=== PATIENT | female | born 1950 | race Caucasian/White ===

== ENCOUNTER → 2016-11-15 | Outpatient (CLI) | payer OTHER ==
[~2016-11-15] MED LIST: ACET-1256 PO; ASPCH81X PO; CHOL200010 PO; CLR10 PO; COEN100C7 PO; COQ10 PO; EFF75 PO; EPP3/2 IM; FERR1TAB23 PO; HYDR25TA4 PO; METO1TAB69 PO; MULT-506 PO; NAPR1TAB9 PO; OXYC-57 PO; PANT40TA PO; POTA10CA28 PO; SIMV40TA2 PO; SULF800T23 PO; TPRSR/100 PO; WARF2TAB PO
== END | disposition home or self-care (01) ==
LOC: C.RDSM 14:00
PROVIDERS: ATTEND Physical Medicine & Rehabilitation Sports Medicine
DX: M25.561 Pain in right knee (principal); M25.562 Pain in left knee

== ENCOUNTER → 2016-11-19 | Outpatient (CLI) | payer OTHER ==
[2016-11-19 17:34] LABS: MEAN CELL VOLUME 87.6 fL (80-100); MEAN CORPUSCULAR HEMOGLOBIN 28.8 pg (25-34); MEAN CORPUSCULAR HGB CONC 32.8 g/dl (32-36); MEAN PLATELET VOLUME 10.5 fL (7.4-10.4); PLATELET COUNT 228 K/uL (130-400); RED BLOOD COUNT 5.25 M/uL (4.2-5.4); WHITE BLOOD COUNT 4.71 K/uL (4.8-10.8)
== END | disposition home or self-care (01) ==
LOC: C.LABBFT 12:50
PROVIDERS: ATTEND Nurse Practitioner
DX: D64.9 Anemia, unspecified (principal)

== ENCOUNTER → 2017-01-10 | Outpatient (CLI) | payer OTHER ==
[~2017-01-10] MED LIST changes: +METO100T44 PO; -METO1TAB69 PO
== END | disposition home or self-care (01) ==
LOC: C.LABSPEC 12:58
PROVIDERS: ATTEND Nurse Practitioner
DX: D64.9 Anemia, unspecified (principal)

== ENCOUNTER 2017-02-02 05:58 | Inpatient (IN) | payer OTHER ==
[2017-01-13 11:49] VITALS: BMI 27.0
--- NOTE | 2017-01-13 12:38 | PAT Medication Instructions ---
Service Date Jan 13, 2017. Current Home Medication List Acetaminophen (Tylenol), 1,000 MG PO PRN Aspirin (Aspirin Chewable), 81 MG PO QAM Cholecalciferol (Vitamin D), 1 CAP PO HS Epinephrine (Epipen), 0.3 MG IM UD Ferrous Sulfate (Iron), 325 MG PO 2XWEEK Hydrochlorothiazide (Hctz), 25 MG PO QAM Loratadine (Claritin), 10 MG PO PRN Multivitamin (Multivitamin), 1 TAB PO QAM Naproxen (Aleve), 220 MG PO QAM Potassium Chloride (Micro-K Ext Rel), 10 MEQ PO BID Simvastatin (Zocor), 40 MG PO HS Venlafaxine Hcl (Effexor), 75 MG PO QAM Venlafaxine Hcl (Effexor), 75 MG PO DAILY [Coq10], 1 TAB PO QAM Medication Instructions For Your Scheduled Surgery Epinephrine (Epipen), 0.3 MG IM UD (if needed) - Hold the following medications 10 days prior to surgery: Coq10 1 TAB PO QAM - Hold the following medications the morning of surgery: Potassium Chloride (Micro-K Ext Rel), 10 MEQ PO BID Naproxen (Aleve), 220 MG PO QAM (not told to stop by surgeon) Hydrochlorothiazide (Hctz), 25 MG PO QAM Loratadine (Claritin), 10 MG PO PRN Multivitamin (Multivitamin), 1 TAB PO QAM Ferrous Sulfate (Iron), 325 MG PO 2XWEEK - Take the following medications the morning of surgery with a sip of water: Venlafaxine Hcl (Effexor), 75 MG PO QAM Acetaminophen (Tylenol), 1,000 MG PO PRN (if needed) Aspirin (Aspirin Chewable), 81 MG PO QAM Metoprolol 100mg daily - Take the following medications as scheduled the night before surgery: Simvastatin (Zocor), 40 MG PO HS Potassium Chloride (Micro-K Ext Rel), 10 MEQ PO BID Loratadine (Claritin), 10 MG PO PRN Cholecalciferol (Vitamin D), 1 CAP PO HS If you have any questions please call us at [phone] or [phone] ( Francesca) or [phone]
[2017-01-13 13:13] LABS: BASO % 0.6 %; BASO ABS # 0.03 K/uL (0-0.2); COMPLETE YES; EOS % 1.9 %; HEMATOCRIT 43.3 % (37-47); LYMPH % 42.4 %; LYMPH ABS # 2.02 K/uL (1.2-3.4); MEAN CELL VOLUME 84.9 fL (80-100); MEAN CORPUSCULAR HEMOGLOBIN 28.4 pg (25-34); MEAN CORPUSCULAR HGB CONC 33.5 g/dl (32-36); MEAN PLATELET VOLUME 9.6 fL (7.4-10.4); MONO % 10.7 %; NEUT % 44.4 %; PLATELET COUNT 218 K/uL (130-400); WHITE BLOOD COUNT 4.76 K/uL (4.8-10.8)
[2017-01-13 13:16] LABS: URINE APPEARANCE CLEAR (CLEAR); URINE BILIRUBIN NEG (NEG); URINE COLOR YELLOW; URINE NITRITE NEG (NEG); URINE SPECIFIC GRAVITY 1.011 (1.000-1.030); UROBILINOGEN NEG (NEG); ZZUR CULT IF INDIC CLEAN CATCH NO
--- NOTE | 2017-01-13 13:20 | DIAGNOSTIC IMAGING REPORT ---
TWO VIEW CHEST CLINICAL HISTORY: Preoperative examination. FINDINGS: PA and lateral chest radiographs are compared to study dated 05/21/2016. The patient is status post midline sternotomy and aortic valve replacement. The heart is mildly enlarged. The pulmonary vasculature is noncongested. The lungs and pleural spaces are clear. There is no pneumothorax. The skeletal structures are osteopenic. There is moderate thoracic levocurvature. Thoracolumbar spinal rods are in place. Cholecystectomy clips are seen in the right upper quadrant. IMPRESSION: No active disease in the chest. Electronically signed by: David Garcia M.D. 01/13/2017 1:19 PM Dictated Date/Time: 01/13/2017 1:18 PM
[2017-01-13 13:28] LABS: PROTHROMBIN TIME (PATIENT) 10.8 SECONDS (9.0-12.0)
[2017-01-13 13:29] LABS: MANUAL MICROSCOPIC REQUIRED? NO; REVIEW REQ? NO
[2017-01-13 14:04] LABS: BUN/CREATININE RATIO 21.4 (10-20); CALCIUM 9.6 mg/dl (8.5-10.1); CREATININE 0.78 mg/dl (0.60-1.20); POTASSIUM 4.5 mmol/L (3.5-5.1)
--- NOTE | 2017-01-18 11:58 | HISTORY & PHYSICAL EXAMINATION ---
DATE OF ADMISSION: 02/02/2017 CHIEF COMPLAINT: Left knee pain. HISTORY OF PRESENT ILLNESS: This 66-year-old white female presents to the office with complaints of left knee pain that had been ongoing for several years. It has become worse over the last 6-9 months. Pain is worse with weightbearing and is affecting her ADLs. She states she had a trip to [place] in [place] in September and her knee pain made her miserable. It was very difficult for her to get through the amusement [place]. She notes occasional effusions. She has used a cane in the past. She is currently using nothing today. She does use a wheelchair and scooter while [place] the amusement [place]. No numbness or tingling. She has tried activity modification, oral pain medication, and assistive devices without lasting improvement. Preoperative x-rays have been obtained. She elects to proceed with total knee arthroplasty in hopes of alleviating her pain. PAST MEDICAL HISTORY: Significant for heart murmur, previous aortic valve replacement, hypertension, seasonal allergies, history of anemia, history of GI bleed, osteoarthritis, chronic back pain, and obesity. PREVIOUS SURGERIES: Tonsillectomy with adenoidectomy, cholecystectomy, thoracic back fusion, aortic valve replacement in July 2014 at [facility], and multiple breast biopsies. ALLERGIES: KNOWN ALLERGY TO CIPRO WHICH CAUSES NAUSEA, SURGICAL GLUE CAUSING SKIN REACTION, BEE STINGS, WELL CRAB MEAT. SOCIAL HISTORY: The patient is . Retired. No tobacco use, no ETOH use. FAMILY HISTORY: Noncontributory. CURRENT MEDICATIONS: Tylenol 325 mg 2 tablets p.o. q. 4 hours p.r.n., aspirin 81 mg daily, vitamin D daily, iron daily, HCTZ 25 mg p.o. daily, metoprolol 100 mg p.o. daily, Aleve 2 tablets p.r.n., potassium chloride 10 mEq p.o. b.i.d., simvastatin 20 mg p.o. at bedtime, CoQ10 daily, Effexor XR 150 mg p.o. daily. REVIEW OF SYSTEMS: Significant for above-stated conditions, otherwise unremarkable. PHYSICAL EXAMINATION: GENERAL: Well-developed, well-nourished middle aged white female in no acute distress. Sitting on a bed. Alert and oriented. SKIN: Warm and dry with good turgor. No rashes or lesions. No ecchymosis or erythema. HEENT: Normocephalic, atraumatic. Eyes PERRLA, EOMI. Nares patent bilaterally without turbinate enlargement. Oropharynx without erythema or exudate. No lesions noted. Uvula midline. Oral mucosa moist. Fair dentition. Dental caps fillings are noted. HEART: 3/6 systolic ejection murmur noted. No gallops or rubs. Peripheral pulses are 2+. LUNGS: Clear to auscultation bilaterally. No crackles, rhonchi or wheezing. Good air movement. ABDOMEN: Bowel sounds present x4, soft, nontender. No organomegaly. No masses. MUSCULOSKELETAL: Left knee has no intraarticular effusion today. She lacks approximately 5 degrees of terminal extension. Flexion to 100 degrees. Strength is 5/5 with fairly good quad tone. Significant discomfort with palpation over the medial and lateral joint lines. There is also peripatellar discomfort. Crepitus is palpable with motion. Stable collateral ligaments. Ambulatory with a slightly antalgic gait. NEUROLOGIC: Cranial nerves II through XII are intact. Gross sensation is intact across both lower extremities by soft touch. DATA: Radiographic images previously obtained show end-stage DJD of her left knee. Periarticular osteophytes, subchondral sclerosis, and joint space narrowing are present. IMPRESSION: Left knee end-stage degenerative joint disease. PLAN: Informed written consent was obtained to proceed with left total knee arthroplasty. Postoperative prescriptions for Percocet and Coumadin will be provided at discharge from the hospital. Anticipate discharge to home with 2 weeks of home health services and then outpatient PT. She already has a walker and cane. She has previously obtained medical clearance from her filter press tender head, Dr. Sewell. She will also obtain medical clearance from Dr. Chua. Preoperative lab work, EKG, and chest x-ray have been ordered. MTDD
[~2017-02-02] VITALS: Ht 175.3 cm; Wt 82.0 kg
[2017-02-02] VITALS (9 sets, daily range): BP systolic 96–130; BP diastolic 59–85; PULSE 66–77; TEMP 36.5–36.8; O2SAT 95–100; Ht 175.3 cm; Wt 82.0 kg
[~2017-02-02 05:58] MED LIST changes: -COEN100C7 PO; -METO100T44 PO; -OXYC-57 PO; -PANT40TA PO; -SULF800T23 PO; -WARF2TAB PO
[2017-02-02] MEDS ORDERED: LACTATED RINGER'S 500 ML IV SCH (06:00)
[2017-02-02] MEDS ORDERED: LACTATED RINGER'S 1000ML IV SCH ×2 (06:00)
[2017-02-02] MEDS ORDERED: ROPIVACAINE 5MG/ML 30 ML 150 MG, BUPIVACAINE/EPINEPHR 0.5% MPF 30 ML, KETOROLAC TROMETH... INFIL SCH ×7 (06:00)
[2017-02-02] MEDS ORDERED: CEFAZOLIN 2000 MG/60 ML D5W 60 ML IV SCH (06:00)
[2017-02-02] MEDS ORDERED: TRANEXAMIC ACID INJ 1,000 MG in SODIUM CHLORIDE 0.9% 100ML 100 ML IV SCH (06:00)
[2017-02-02] MEDS ORDERED: TRANEXAMIC ACID INJ 1,000 MG in SODIUM CHLORIDE 0.9% 100ML 100 ML TOP SCH (06:30)
--- NOTE | 2017-02-02 06:35 | History & Physical Bridge Note ---
H&P Re-Evaluation Bridge Note: I have examined the patient, reviewed the History & Physical and in the interval since the performance of the History & Physical I have noted the following changes of clinical significance:no new issues. No changes noted
[2017-02-02] MEDS ORDERED: MIDAZOLAM HCL 1 MG/ML 2ML VIAL ONE (07:24)
[2017-02-02] MEDS ORDERED: LIDOCAINE HCL 2% 2 ML VIAL (20MG/ML) ONE (07:24)
[2017-02-02] MEDS ORDERED: FENTANYL CITRATE INJ 50 MCG/1 ML 2 ML VIAL ONE (07:24)
[2017-02-02] MEDS ORDERED: PROPOFOL IV EMULSION 10 MG/ML 20 ML VIAL IV ONE ×2 (07:24→09:30)
[2017-02-02] MEDS ORDERED: BUPIVACAINE 0.5 % 5 MG/1 ML PF 10ML VIAL ONE (08:03)
[2017-02-02] MEDS ORDERED: BUPIVACAINE 0.25% 30 ML VIAL ONE (08:03)
[2017-02-02] MEDS ORDERED: LABETALOL HCL IV 5 MG/ML 20ML IV PRN (08:30)
[2017-02-02] MEDS ORDERED: NALOXONE HCL 0.4 MG/1 ML VIAL/CARP IV PRN (08:30)
[2017-02-02] MEDS ORDERED: FLUMAZENIL 0.1 MG/1 ML 10 ML VIAL IV PRN (08:30)
[2017-02-02] MEDS ORDERED: ONDANSETRON INJ 2 MG/ML 2 ML VIAL IV PRN (08:30)
[2017-02-02] MEDS ORDERED: HYDROmorphone INJ 1 MG/ML SYR IV PRN (08:30)
[2017-02-02] MEDS ORDERED: EpHEDrine SULFATE INJ 50 MG/ML AMP IV PRN (08:30)
[2017-02-02] MEDS ORDERED: ATROPINE SULFATE 0.1 MG/ML 5ML SYR IV PRN (08:30)
[2017-02-02] MEDS ORDERED: POVIDONE-IODINE OP SOLN 30 ML BTL ONE (08:41)
[2017-02-02] MEDS ORDERED: ORTHO JOINT ANESTHETIC ONE (08:41)
[2017-02-02] MEDS ORDERED: ONDANSETRON INJ 2 MG/ML 2 ML VIAL ONE (09:13)
[2017-02-02] MEDS ORDERED: DEXAMETHASONE SOD INJ 4 MG/ML VIAL ONE (09:13)
[2017-02-02] MEDS ORDERED: HYDROmorphone INJ 2 MG/ML SYR/VIAL ONE (09:22)
[2017-02-02] MEDS ORDERED: EpHEDrine SULFATE 50MG/5ML SYR ONE (09:24)
--- NOTE | 2017-02-02 10:25 | [facility] Post Operative Brief Note ---
Immediate Operative Summary Operative Date Feb 02, 2017. Pre-Operative Diagnosis Left Knee End-Stage Degenerative Joint Disease Post-Operative Diagnosis Left Knee End-Stage Degenerative Joint Disease Procedure(s) Performed Left Total Knee Arthroplasty, Cemented Surgeon Dr. Zhao Manager Garage Surgeon(s) Dr. Armen Cohen (Fellow)/ Fadi Cueva PA-C Estimated Blood Loss 50 ml Findings severe djd Fluids (cc crystalloids) 1600cc Specimens A: Left Knee Bone and Tissue Drains none Anesthesia LMA/OB Complication(s) None Disposition Recovery Room / PACU
[2017-02-02] MEDS ORDERED: ACETAMINOPHEN IV 100 ML IV PRN (10:45)
[2017-02-02] MEDS ORDERED: ALUMINUM/MAGNESIUM/SIMETH (MAALOX MAX) 30 ML UDC PO PRN (10:45)
[2017-02-02] MEDS ORDERED: MAGNESIUM HYDROXIDE SUSP 30 ML UDC PO PRN (10:45)
[2017-02-02] MEDS ORDERED: MoRPHine SULFATE 2 MG/ML CARP IV PRN (10:45)
[2017-02-02] MEDS ORDERED: ACETAMINOPHEN 325 MG TAB PO PRN (10:45)
[2017-02-02] MEDS ORDERED: DiphenhydrAMINE HCL 50 MG/ML VIAL IV PRN (10:45)
[2017-02-02] MEDS ORDERED: BISACODYL 10 MG SUPP PR PRN (10:45)
[2017-02-02] MEDS ORDERED: METOCLOPRAMIDE HCL INJ 5 MG/ML 2 ML VIAL IV PRN (10:45)
--- NOTE | 2017-02-02 11:06 | OPERATIVE REPORT ---
DATE OF OPERATION: 02/02/2017 SURGEON: Dr. Zhao. FILM EXAMINER: Armen Cohen MD SECOND FILM EXAMINER: ELICIA Sims PREOPERATIVE DIAGNOSIS: Osteoarthritis left knee with varus deformity. POSTOPERATIVE DIAGNOSIS: Same. OPERATION PERFORMED: Cemented left total knee replacement. SUMMARY OF IMPLANTS: Size 3 left posterior cruciate substituting femur, size 3 rotating tibial platform tray, size 3 12.5 mm spacer, oval domed 3 pegged patella size 41, 2 bags of Palacos G cement. ESTIMATED BLOOD LOSS: 50 mL. CRYSTALLOID: 1600 mL. DVT prophylaxis per protocol. PERIOPERATIVE SITUATION: Medically cleared female with intractable knee pain is on chronic anticoagulation for valve replacement. She will return on that. She is now admitted for elective left total knee replacement, cemented. DESCRIPTION OF PROCEDURE: The patient appropriately identified, site verified, consent verified, 2 grams of Ancef confirmed as being given. The left lower extremity was prepped and draped in usual routine fashion. A midline exposure was utilized after tourniquet was inflated to 300 mmHg for a total of 52 minutes. Parapatellar arthrotomy performed. Appropriate synovectomy and releases performed, patella everted. Distal femur entered. Distal femur resected 12 mm. Proximal tibia resected 4 mm. The extension gap was excellent. Femur was sized between a 4 and a 3, was measured 4 cut 3. There was no significant notching. The space at the flexion gap spacing was excellent. Appropriate box cut was then made and the size 3 trial fit well. The tibia was then broached and reamed to a 3 and then 12.5 mm spacer provided full extension and excellent mid range flexion stability. The patella was sized to 41 and was resected leaving 14-15 mm. The trial peg holes were then made and the trial tracked well. The ortho mix was then injected. The wound was then irrigated. TXA was then placed and she did not get an IV based on her valve replacement and that was irrigated. Permanent implants were then cemented into position. After 12 minutes, the tourniquet deflated. After 14 minutes the knee flexed. Minor cement removal occurred. Chodrocalcinosis on the capsule was not excised if the integrity of the capsule would be in question. The trial spacer removed. The wound was irrigated with a Pulsavac and Betadine and then the permanent spacer seated. The knee reduced and then closed with #1 Ethibond, #1 Vicryl, 2-0 Vicryl and stainless steel clips. Appropriate soft tissue dressing applied. The patient was then transferred to recovery room in satisfactory condition having tolerated the procedure well. I attest to the content of the Intraoperative Record and any orders documented therein. Any exceptions are noted below. MTDD
--- NOTE | 2017-02-02 11:07 | PROGRESS NOTE ---
DATE: 02/02/2017 Postop check in the recovery room. At this point in time, still sleepy. Has no issues with nausea, vomiting, chest pain, shortness of breath, fever or chills. Vital signs are stable. She is afebrile. Neurovascular check is grossly normal. X-rays are pending. ASSESSMENT: Status post left total knee replacement. Continue with post-care pathway. Obtain x-ray postop. Mobilize EMANI based on heart disease. Coumadin for 4 weeks, aspirin continued.
--- NOTE | 2017-02-02 11:23 | Anesthesiology Progress Note ---
Anesthesia Post Op Note Date & Time Feb 02, 2017 at 11:22 Vital Signs Pain Intensity: 0 Vital Signs Past 12 Hours Date Time Temp Pulse Resp B/P Pulse Ox O2 Delivery O2 Flow Rate FiO2 02/02/17 11:15 36.3 82 18 123/65 100 Nasal Cannula 2 02/02/17 10:59 85 17 100 02/02/17 10:59 85 17 02/02/17 10:56 122/82 02/02/17 10:54 82 11 100 02/02/17 10:54 81 11 02/02/17 10:51 116/61 02/02/17 10:49 82 13 100 02/02/17 10:49 81 13 02/02/17 10:46 121/60 02/02/17 10:44 83 12 02/02/17 10:44 82 12 100 02/02/17 10:40 123/61 02/02/17 10:39 83 16 02/02/17 10:39 36.3 82 16 124/64 100 Mask 10 02/02/17 10:39 84 16 124/64 100 02/02/17 06:49 36.5 72 20 130/85 99 Room Air Notes Mental Status: alert / awake / arousable, participated in evaluation Pt Amnestic to Procedure: Yes Nausea / Vomiting: adequately controlled Pain: adequately controlled Airway Patency, RR, SpO2: stable & adequate BP & HR: stable & adequate Hydration State: stable & adequate Anesthetic Complications: no major complications apparent
--- NOTE | 2017-02-02 11:46 | OPERATIVE REPORT ---
DATE OF OPERATION: 02/02/2017 PREOPERATIVE DIAGNOSIS: Left knee end-stage degenerative joint disease. POSTOPERATIVE DIAGNOSIS: Left knee same. PROCEDURE: Left knee total knee arthroplasty using DePuy implants. SURGEON: Dr. Zhao. CAUSTIC PLANT WORKER: Dr. Phoenix. SECOND DOCUMENT CONTROL SUPERVISOR: Fadi Cueva PA-C. HISTORY OF PRESENT ILLNESS: This 66-year-old white female presented to the office with complaints of left knee pain that had been ongoing for several years. It had become worse over time. She was using assistive device. She had tried conservative care measures without success. The patient elected to proceed with surgical intervention after being educated about potential risks and outcomes. OPERATION: The patient was taken to the operating room where she was administered general anesthetic. She was prepped and draped in the usual sterile fashion. Please see Dr. Zhao's operative report for specifics of the procedure. I was present for the entire case from initial patient positioning through final wound closure. Assistance was provided in patient positioning, tissue retraction, hemostasis, trial implant placement, final implant placement, and final wound closure. The patient was taken to the recovery room in satisfactory condition. I attest to the content of the Intraoperative Record and any orders documented therein. Any exceptio ns are noted below.
[2017-02-02] MEDS ORDERED: WARF2TAB PO (12:05)
[2017-02-02] MEDS ORDERED: OXYC-57 PO (12:05)
--- NOTE | 2017-02-02 12:14 | DIAGNOSTIC IMAGING REPORT ---
ADDENDUM ADDENDUM: The case was discussed with Dr. Zhao. The calcific density within the lateral joint space corresponds to a meniscal fragment with chondrocalcinosis as opposed to a calcified joint body. Electronically signed by: David Garcia M.D. 02/02/2017 1:09 PM Dictated Date/Time: 02/02/2017 1:08 PM ORIGINAL REPORT TWO VIEWS LEFT KNEE CLINICAL HISTORY: Postoperative examination. FINDINGS: AP and crosstable lateral portable views of the left knee are obtained. Correlation is made with left knee radiographs dated 11/15/2016. A left knee arthroplasty is in near anatomic alignment. There has been undersurface remodeling of the patella. No acute fracture is seen. There are expected postoperative changes around the knee including skin clips, soft tissue edema, and subcutaneous gas. A calcified fabella is incidentally noted. A joint body is questioned in the lateral joint space. A soft tissue calcification posterior to the knee is unchanged. IMPRESSION: 1. Expected postoperative changes status post left knee arthroplasty. No acute fracture is seen. 2. Question a calcified joint body within the lateral joint space. Electronically signed by: David Garcia M.D. 02/02/2017 12:12 PM Dictated Date/Time: 02/02/2017 12:11 PM
[2017-02-02] MEDS ORDERED: MoRPHine SULFATE 4 MG/ML 1 ML CARP\\VIAL IV PRN (13:00)
[2017-02-02] MEDS ORDERED: D5W AND 1/2NSS + 20MEQ KCL 1,000 ML IV SCH (13:00)
--- NOTE | 2017-02-02 13:15 | PROGRESS NOTE ---
DATE: 02/02/2017 X-RAY: AP and lateral of the knee postop reveals excellent alignment of the implant. The area in question of a calcified body is secondary to chondrocalcinosis on the posterior capsule and posterior remnant of the meniscus. It is not a free piece. It is not in the joint. It was elected not to excise all of this based on the fact that it would decrease the integrity of the capsule and potentially increase instability. This correlates well with preop x-rays at the posterior horn area of the capsule and the meniscus junction. Again, it is not a loose body.
[2017-02-02] MEDS ORDERED: WARFARIN SOD 5 MG TAB PO ONE (16:00)
[2017-02-02] MEDS: CEFAZOLIN IV 2,000 MG in DEXTROSE 5% 50ML 50 ML IV SCH (16:15)
[2017-02-02] MEDS: OXYCODONE HCL IR 5 MG TAB (IMMEDIATE RELEASE) PO PRN ×2 (17:31→21:05)
[2017-02-02] MEDS: ONDANSETRON INJ 2 MG/ML 2 ML VIAL IV PRN (17:31)
[2017-02-02] MEDS: FERROUS GLUCONATE 324 MG TAB PO SCH (18:14)
[2017-02-02] MEDS: KETOROLAC TROMETHAMINE 30 MG/ML VIAL IV. SCH (18:15)
[2017-02-02] MEDS ORDERED: SIMVASTATIN 40 MG TAB PO SCH (21:00)
[2017-02-02] MEDS: DOCUSATE SODIUM 100 MG CAP PO SCH (21:04)
[2017-02-02] MEDS: POTASSIUM CHLORIDE 10 MEQ TABCR PO SCH (21:05)
[2017-02-03] MEDS: CEFAZOLIN IV 2,000 MG in DEXTROSE 5% 50ML 50 ML IV SCH (00:04)
[2017-02-03] MEDS: KETOROLAC TROMETHAMINE 30 MG/ML VIAL IV. SCH ×3 (00:06→12:04)
[2017-02-03 03:25] VITALS: BP 94/58; PULSE 71; TEMP 36.6; O2SAT 100
[2017-02-03] MEDS: OXYCODONE HCL IR 5 MG TAB (IMMEDIATE RELEASE) PO PRN ×3 (05:50→14:11)
[2017-02-03 06:37] LABS: HEMATOCRIT 34.2 % (37-47); MEAN CELL VOLUME 87.7 fL (80-100); MEAN PLATELET VOLUME 9.2 fL (7.4-10.4); PLATELET COUNT 194 K/uL (130-400); WHITE BLOOD COUNT 11.71 K/uL (4.8-10.8)
--- NOTE | 2017-02-03 07:04 | DISCHARGE SUMMARY ---
POSTENTIAL DISCHARGE: 02/03/2017 versus 02/04/2017 CHIEF COMPLAINT: Left knee pain. HISTORY OF PRESENT ILLNESS: A 66-year-old female admitted for elective left total knee replacement. Her hospital course has been relatively uneventful. She had severe disease. PAST MEDICAL HISTORY: Remarkable for heart murmur, previous aortic valve replacement, hypertension, seasonal allergies, history of anemia, history of GI bleed, osteoarthritis, chronic back pain, and obesity. PREVIOUS SURGERIES: Include tonsillectomy with adenoidectomy, cholecystectomy, thoracic back fusion, aortic valve replacement, multiple breast biopsies. ALLERGIES: TO CIPRO WHICH CAUSES NAUSEA, SURGICAL GLUE CASUES SKIN REACTION, BEE STINGS, AND CRAB MEAT. SOCIAL HISTORY: Reveals she is , retired. Does not smoke or drink. FAMILY HISTORY: Noncontributory. PREADMISSION MEDICATIONS: Include Tylenol, aspirin, vitamin D, iron, hydrochlorothiazide, metoprolol, Aleve, potassium chloride, simvastatin, CoQ10, Effexor. She will continue all of those medications and add Coumadin to keep INR 1.8-2.2. Discharge on 4 mg of Coumadin if INR is less than or equal to 1.4 today. REVIEW OF SYSTEMS: Noncontributory. She has no headache, nausea, vomiting, shortness of breath, fever or chills. ASSESSMENT: Overall doing well status post left total knee replacement. A little bit anxious about leaving today, but if she does well, can leave today; if not, leave tomorrow. If INR is less than or equal to 1.4, discharge on 4 mg Coumadin. Check INR on Tuesday.
[2017-02-03 07:14] LABS: BUN/CREATININE RATIO 14.8 (10-20); CALCIUM 8.4 mg/dl (8.5-10.1); CREATININE 0.81 mg/dl (0.60-1.20); POTASSIUM 3.6 mmol/L (3.5-5.1)
[2017-02-03] MEDS: ONDANSETRON INJ 2 MG/ML 2 ML VIAL IV PRN (07:22)
--- NOTE | 2017-02-03 07:22 | PROGRESS NOTE ---
DATE: 02/03/2017 Postoperative day #1 status post left total knee replacement. At this point in time, the patient is reading paper in bed, sitting up comfortably. She denies any chest pain, shortness of breath, fever, chills, nausea, vomiting or headache. She gets occasionally lightheaded usually associated with pain medication. Vital signs are stable. She is afebrile. Neurovascular check femoral sciatic nerve is excellent. Wound dressing is clean, dry and intact. Calves are nontender. Abdomen is soft and nontender. Coagulation and chemistry pending this morning. Hematocrit stable at 34.2. ASSESSMENT: Status post left total knee replacement, doing well. PT/OT today. Coumadin per nomogram today. Discharge on 4 mg Coumadin if INR less than or equal to 1.4. Potential home later today after PT/OT if she so desires; if not go home tomorrow. patient services clerk planning in place. Prefers home health with services. Start outpatient PT after 2 weeks. CECILIA
[2017-02-03] MEDS ORDERED: DEXAMETHASONE INJ 10 MG in SYRINGE 0 ML IV ONE (07:30)
[2017-02-03 07:45] VITALS: BP 101/65; PULSE 68
--- NOTE | 2017-02-03 07:45 | Discharge Instructions ---
Discharge Instructions Date of Service Feb 02, 2017. Admission Reason for Admission: Left Knee Degenerative Joint Disease Discharge Discharge Diagnosis / Problem: Left knee s/p total knee replacement Discharge Goals Goal(s): Decrease discomfort, Improve function, Increase independence Activity Recommendations Activity Limitations: as noted below Lifting Limitations: gradually increase as tolerated Exercise/Sports Limitations: until after follow-up appointment Shower/Bathe: keep incision dry Driving or Machine Use: No driving until cleared by Dr. Zhao Weightbearing Status: Left weightbearing (as tolerated) . Instructions / Follow-Up Instructions / Follow-Up New Medicine: * You will likely be taking one or more of these medications: 1. Percocet - Take, as directed, when you need it, every four to six hours to control your pain 2. Coumadin - Thins your blood to lessen the chance of forming a blood clot. The dose of this is different for each person and is based on your blood tests that are done twice a week. * The most common side effects of pain medicine and iron are nausea and constipation. If nausea or constipation is too much of a problem or if you have any questions about your new medicines or doses, call [facility] at . We will try to help you manage these issues. VERY IMPORTANT TO READ AND REVIEW" Blood Clots and Blood Thinning Medicine: * You are given Coumadin during the immediate post-operative period to lessen the risk of blood clots forming in your legs and/or lungs. Coumadin is usually given for six weeks after surgery. * The prescription is for 2 mg tablets. At discharge, you should understand your dose and take it all at the same time every day, preferably after dinner. * You need to get your blood checked 1 - 2 times per week for six weeks or as directed. * If your dose needs to change, we will call you. Do not take your medication on the day of the blood test until we call you. Pain: * The immediate post-operative period after knee replacement surgery is often quite painful. * You are given a prescription for pain medicine. You should take it, as directed, when you need it, especially before physical therapy and before going to bed. Pain that interferes with sleep is very common and can last several months. * You will likely need pain medicine for the first four to six weeks. It will not stop all of the pain. The pain will lessen and as you feel better, you may change to milder pain medicine such as Tylenol. * The most common side effects of pain medicine are nausea and constipation, so don't take more than you need. Physical Therapy: * You will have physical therapy two or three times each week for four to six weeks after your surgery in order to regain your knee range of motion and to retrain your knee to work properly. * It is just as important to make sure you are getting your knee perfectly straight as it is to regain your knee bend. * Taking a pain pill an hour before therapy can help you have a more productive and comfortable therapy session if needed. Home Exercise: * You were shown a series of exercises (heel props, heel slides, etc.) in the hospital. Do these exercises three to four times each day including the exercises you were shown in physical therapy. Walking: * Get up and walk several times each day. For the first four weeks, try not to stand or walk for more than one hour at a time. If you do stand or walk for more than one hour, you will not hurt anything, but your knee and leg will likely swell. * As you feel comfortable, you may change from the walker or crutches to a cane and then to independent walking. SELF CARE INSTRUCTIONS AFTER TOTAL KNEE REPLACEMENT A. You may need to continue a physical therapy program after discharge from the hospital. There are several options available to you. Your doctor will assist you in selecting the best one for you. 1. An out-patient facility 2 to 3 times a week for therapy or home therapy. 2. Continue working on all exercises taught to you in the hospital. Your goals should be to increase bending of your knee to 90 degrees and beyond and to fully straighten your knee. B. You may progress at your own pace from walking with a walker or crutches to a cane; then to no assistive devices. C. Make walking a part of your daily routine. Be up as much as comfortable with rest periods throughout the day. Rest with leg elevation is very important. Use the ice wrap frequently for the first 3-4 weeks. D. There are no restrictions on activities. You may ride in a car, shop, participate in machine joint cutter and all social activities. E. Wear the long elastic stockings (KVNG hose) 20 hours a day for six weeks after surgery. They can be removed several times a day for laundering and for a shower. F. Do not place a pillow behind your knee when resting. A pillow at your ankle is okay. VERY IMPORTANT TO READ AND REVIEW A. Take Coumadin, Aspirin or Lovenox (blood thinning medications) as directed by your doctor. If on Coumadin, have a pro-time (blood test) drawn according to your doctor's instructions. This will tell the doctor how well the Coumadin is thinning your blood. 1. YOU WILL BE GIVEN AN ORDER AT DISCHARGE FOR PT/INR (BLOOD WORK). PLEASE HAVE THIS DONE INSTRUCTED. PLEASE CALL OUR OFFICE AFTER YOUR BLOODWORK IS COMPLETE SO WE CAN TRACK YOUR RESULTS. IF YOU ARE GOING TO OUTPATIENT PHYSICAL THERAPY, YOU WILL NEED TO GO TO OUTPATIENT TESTING TO HAVE IT DRAWN. B. There are a few signs you need to watch for after you are home. Call [facility] if you notice any of the followin. Increased severe knee pain. Some pain is expected especially when you exercise. 2. Increased swelling in your leg or knee; pain or swelling of the calf muscle in either lower leg. 3. Any fluid drainage from the incision. 4. Shortness of breath or chest pain. C. Please call [facility] at if you have any concerns or questions about your operation or recovery. The doctor or his nurse will return your call promptly. D. You must take antibiotics before dental work, bladder, bowel or other surgery. Call the office to obtain a prescription at least 2 days prior to your appointment. * CALL IF INCREASED PAIN, REDNESS, DRAINAGE OR FEVER GREATER THAT 101. * Sutures should be removed 12-14 days after surgery unless you are on chronic steriods, then it will be 14-18 days after surgery. Call your doctor if: * Temperature above 101 degrees F. * Pain not relieved by pain medicine ordered. * Increased drainage or redness from incision. * Notify your doctor with any questions or concerns. Current Hospital Diet Patient's current hospital diet: AHA Diet (Heart Healthy) Discharge Diet Recommended Diet: AHA Diet (Heart Healthy) Procedures Procedures Performed: Left Total Knee Arthroplasty, Cemented Pending Studies Studies pending at discharge: no Medical Emergencies . Who to Call and When: Medical Emergencies: If at any time you feel your situation is an emergency, please call 911 immediately. . Non-Emergent Contact Non-Emergency issues call your: Primary Care Provider, Surgeon Call Non-Emergent contact if: temperature is above 101, wound has increased drainage, wound has increased redness, wound has increased pain, you have any medication questions . "Provider Documentation" section prepared by Fadi Cueva PA-C. . VTE Core Measure Inpt VTE Proph given/why not?: Warfarin (Coumadin), T.EZach Stockings, SCD's [place] Drug Monitoring Program Search Results: no issues identified
--- NOTE | 2017-02-03 08:06 | Anesthesiology Progress Note ---
Anesthesia Post Op Note Date & Time Feb 03, 2017 at 08:05 Vital Signs Pain Intensity: 3.0 Vital Signs Past 12 Hours Date Time Temp Pulse Resp B/P Pulse Ox O2 Delivery O2 Flow Rate FiO2 02/03/17 07:20 Room Air 02/03/17 03:25 36.6 71 16 94/58 100 Nasal Cannula 2.0 02/03/17 00:00 Nasal Cannula 2.0 02/02/17 23:10 36.6 70 18 96/59 98 Nasal Cannula 2.0 Notes Mental Status: alert / awake / arousable, participated in evaluation Pt Amnestic to Procedure: Yes Nausea / Vomiting: adequately controlled Pain: adequately controlled Airway Patency, RR, SpO2: stable & adequate BP & HR: stable & adequate Hydration State: stable & adequate Neuraxial Anesthesia: sensory block resolved Anesthetic Complications: no major complications apparent
[2017-02-03 08:17] VITALS: BP 95/64; PULSE 68; TEMP 36.5; O2SAT 97
--- NOTE | 2017-02-03 08:21 | Orthopedic Progress Note ---
Orthopedic Progress Note Date of Service Feb 03, 2017. Subjective Post OP Day: 1 Reports: feeling well, nausea / vomiting (vomited 1/2 hour ago, feels better), Denies: SOB, calf pain, chest pain, light headedness Objective calves soft nontender, N/V intact, capillary refill less than 2 sec., dressing C /D/I, incision C/D/I, A&O x3, toes mobile, CMS intact dressings are dry. Minimal dry drainage from surgical wound. VSS. Date Time Temp Pulse Resp B/P Pulse Ox O2 Delivery O2 Flow Rate FiO2 02/03/17 07:20 Room Air 02/03/17 03:25 36.6 71 16 94/58 100 Nasal Cannula 2.0 02/03/17 00:00 Nasal Cannula 2.0 02/02/17 23:10 36.6 70 18 96/59 98 Nasal Cannula 2.0 02/02/17 19:17 36.8 67 18 98/61 95 Room Air 02/02/17 16:10 100 Nasal Cannula 2.0 02/02/17 15:20 36.8 66 18 98/65 99 Nasal Cannula 2.0 02/02/17 14:20 36.5 71 16 98/64 98 2.0 02/02/17 13:37 70 17 97/65 99 Nasal Cannula 2.0 02/02/17 12:50 75 16 112/73 96 Room Air 02/02/17 12:20 36.7 77 16 97/61 99 Nasal Cannula 2.0 02/02/17 12:20 99 Nasal Cannula 2.0 02/02/17 12:20 99 Nasal Cannula 2.0 02/02/17 11:57 75 14 02/02/17 11:57 75 14 100 02/02/17 11:55 107/63 02/02/17 11:52 76 12 02/02/17 11:52 76 12 100 02/02/17 11:50 119/57 02/02/17 11:47 77 8 99 02/02/17 11:47 79 8 02/02/17 11:46 76 16 99 02/02/17 11:46 76 16 02/02/17 11:45 108/60 02/02/17 11:41 77 16 02/02/17 11:41 77 16 100 02/02/17 11:40 106/58 02/02/17 11:36 80 18 100 02/02/17 11:36 79 18 02/02/17 11:35 111/65 02/02/17 11:31 79 11 100 02/02/17 11:31 79 11 02/02/17 11:30 109/58 02/02/17 11:26 75 8 100 02/02/17 11:26 75 8 02/02/17 11:25 108/66 02/02/17 11:21 82 16 02/02/17 11:21 82 16 100 02/02/17 11:20 79 16 116/62 99 02/02/17 11:20 78 16 02/02/17 11:15 80 5 123/65 100 02/02/17 11:15 80 5 02/02/17 11:15 36.3 82 18 123/65 100 Nasal Cannula 2 02/02/17 11:10 81 11 02/02/17 11:10 79 11 126/66 100 02/02/17 11:06 125/72 02/02/17 11:05 83 7 100 02/02/17 11:05 84 7 02/02/17 11:00 84 9 124/64 100 02/02/17 11:00 85 9 02/02/17 10:59 85 17 100 02/02/17 10:59 85 17 02/02/17 10:56 122/82 02/02/17 10:54 82 11 100 02/02/17 10:54 81 11 02/02/17 10:51 116/61 02/02/17 10:49 82 13 100 02/02/17 10:49 81 13 02/02/17 10:46 121/60 02/02/17 10:44 83 12 02/02/17 10:44 82 12 100 02/02/17 10:40 123/61 02/02/17 10:39 83 16 02/02/17 10:39 36.3 82 16 124/64 100 Mask 10 02/02/17 10:39 84 16 124/64 100 Laboratory Results 24 Hours: Test 02/03/17 06:20 Hematocrit 34.2 % Hemoglobin 11.3 g/dL Prothromb Time International Ratio 1.0 Prothrombin Time 11.0 SECONDS Assessment & Plan Assessment: Left knee post op day 1 total knee arthroplasty Plan: PT/OT this morning and patient have some apprehension about discharge today we will see how she does with therapy today and reassess this afternoon coumadin per nomogram dressing changed by me. Wound looks good. maintain total knee precautions postop office appointment already made. Discharge Planning Discharge Planning: home with home health Pain Management: Percocet DVT Prophylaxis: TEDs, SCDs, Coumadin Therapy: Physical Therapy, Occupational Therapy
[2017-02-03] MEDS: FERROUS GLUCONATE 324 MG TAB PO SCH ×2 (08:30→12:04)
[2017-02-03] MEDS: DOCUSATE SODIUM 100 MG CAP PO SCH (08:47)
[2017-02-03] MEDS: POTASSIUM CHLORIDE 10 MEQ TABCR PO SCH (08:48)
[2017-02-03] MEDS ORDERED: VENLAFAXINE HCL 50 MG TAB PO SCH (09:00)
[2017-02-03] MEDS ORDERED: PANTOprazole SOD 40 MG TAB PO SCH (09:00)
[2017-02-03] MEDS ORDERED: MULTIVITAMIN TAB PO SCH (09:00)
[2017-02-03] MEDS ORDERED: METOPROLOL SUCC 50MG EXT REL TAB PO SCH (09:00)
[2017-02-03] MEDS ORDERED: ASPIRIN 81 MG ECTAB PO SCH (09:00)
[2017-02-03] MEDS ORDERED: LORATADINE 10 MG TAB PO SCH (09:00)
[2017-02-03] MEDS ORDERED: HYDROCHLOROTHIAZIDE 25 MG TAB PO SCH (09:00)
[2017-02-03] MEDS ORDERED: WARFARIN SOD 5 MG TAB PO SCH (10:00)
[2017-02-03 10:07] VITALS: BP 100/66; PULSE 60; O2SAT 91
[2017-02-03 10:40] VITALS: BP 107/69
[2017-02-03 12:30] VITALS: BP 105/71; PULSE 75; TEMP 36.8; O2SAT 93
== END 2017-02-03 14:20 | disposition home health service (06) | DRG 470 ==
LOC: ENRESERVTM → ENRESERVDT → C.ACU 05:58 → C.3E 06:30 → UNDOADMIN 12:24 → C.3E 12:24
PROVIDERS: ADMIT Physical Medicine & Rehabilitation Sports Medicine; ATTEND Physical Medicine & Rehabilitation Sports Medicine
PROC: 0SRD0J9 Replacement of Left Knee Joint with Synthetic Substitute, Cemented, Open Approach (ICD-10-PCS; principal; 2017-02-02 08:45)
DX: M17.12 Unilateral primary osteoarthritis, left knee (principal); E66.9 Obesity, unspecified; I10 Essential (primary) hypertension; G89.29 Other chronic pain; M54.5 Low back pain; M54.2 Cervicalgia; F41.9 Anxiety disorder, unspecified; F32.9 Major depressive disorder, single episode, unspecified; M21.169 Varus deformity, not elsewhere classified, unspecified knee; G43.909 Migraine, unspecified, not intractable, without status migrainosus; R01.1 Cardiac murmur, unspecified; J30.2 Other seasonal allergic rhinitis; Z87.09 Personal history of other diseases of the respiratory system; Z87.19 Personal history of other diseases of the digestive system; Z98.1 Arthrodesis status; Z95.2 Presence of prosthetic heart valve; Z68.26 Body mass index [BMI] 26.0-26.9, adult; Z79.82 Long term (current) use of aspirin; Z79.1 Long term (current) use of non-steroidal anti-inflammatories (NSAID); Z79.899 Other long term (current) drug therapy; Z86.79 Personal history of other diseases of the circulatory system

== ENCOUNTER → 2017-02-07 | Outpatient (CLI) | payer OTHER ==
[~2017-02-07] MED LIST changes: -COQ10 PO; -NAPR1TAB9 PO; +OXYC-57 PO; +WARF2TAB PO
[2017-02-07 14:43] LABS: INR 2.5 (0.9-1.1); PROTHROMBIN TIME (PATIENT) 27.7 SECONDS (9.0-12.0)
--- NOTE | 2017-02-09 08:19 | CODING QUERY NO DIAGNOSIS ---
Valid Physician Order Needed A valid physician order must be submitted in order to properly bill for the service(s) provided, including date of service(s), valid diagnosis, and physician signature. If these tests are done on a recurring basis the original physician order must be submitted in order to code and bill for the service(s) provided. Please fax us the original, signed physician order so that we may expedite billing to [phone] DOS 02/07/17 * PTINR Thank you [facility]
== END | disposition home or self-care (01) ==
LOC: C.LABSPEC 14:20
PROVIDERS: ATTEND Physical Medicine & Rehabilitation Sports Medicine
DX: Z01.89 Encounter for other specified special examinations (principal)

== ENCOUNTER → 2017-02-14 | Outpatient (CLI) | payer OTHER ==
[2017-02-14 11:37] LABS: INR 1.2 (0.9-1.1); PROTHROMBIN TIME (PATIENT) 12.5 SECONDS (9.0-12.0)
== END | disposition home or self-care (01) ==
LOC: C.LABSPEC 10:48
PROVIDERS: ATTEND Physical Medicine & Rehabilitation Sports Medicine
DX: Z79.01 Long term (current) use of anticoagulants (principal); Z51.81 Encounter for therapeutic drug level monitoring

== ENCOUNTER → 2017-02-21 | Outpatient (CLI) | payer OTHER ==
[2017-02-21 12:26] LABS: HEMATOCRIT 40.7 % (37-47); MEAN CELL VOLUME 91.1 fL (80-100); MEAN CORPUSCULAR HEMOGLOBIN 29.1 pg (25-34); MEAN CORPUSCULAR HGB CONC 31.9 g/dl (32-36); MEAN PLATELET VOLUME 9.9 fL (7.4-10.4); PLATELET COUNT 562 K/uL (130-400); RED BLOOD COUNT 4.47 M/uL (4.2-5.4); WHITE BLOOD COUNT 5.81 K/uL (4.8-10.8)
[2017-02-21 14:02] LABS: BLOOD UREA NITROGEN 15 mg/dl (7-18); BUN/CREATININE RATIO 18.7 (10-20); CALCIUM 9.6 mg/dl (8.5-10.1); CARBON DIOXIDE 27 mmol/L (21-32); CHLORIDE 102 mmol/L (98-107); GLUCOSE 80 mg/dl (70-99); POTASSIUM 3.7 mmol/L (3.5-5.1); SODIUM 138 mmol/L (136-145)
== END | disposition home or self-care (01) ==
LOC: C.LABBFT 10:23
PROVIDERS: ATTEND Nurse Practitioner
DX: I10 Essential (primary) hypertension (principal)

== ENCOUNTER → 2017-03-28 | Outpatient (CLI) | payer OTHER | END | disposition home or self-care (01) | LOC: C.RDSM 15:30 | PROVIDERS: ATTEND Physical Medicine & Rehabilitation Sports Medicine | DX: Z96.659 Presence of unspecified artificial knee joint (principal) ==

== ENCOUNTER → 2017-04-20 | Outpatient (CLI) | payer OTHER ==
[2017-04-20 17:40] LABS: URINE APPEARANCE CLEAR (CLEAR); URINE BILIRUBIN NEG (NEG); URINE COLOR YELLOW; URINE EPITHELIAL CELL AUTO 0-5 /lpf (0-5); URINE NITRITE NEG (NEG); UROBILINOGEN NEG (NEG)
[2017-04-20 17:45] LABS: MANUAL MICROSCOPIC REQUIRED? NO; REVIEW REQ? YES
== END | disposition home or self-care (01) ==
LOC: C.LABBFT 13:00
PROVIDERS: ATTEND Physician Assistant Medical
DX: R30.0 Dysuria (principal)

== ENCOUNTER → 2017-07-11 | Outpatient (CLI) | payer OTHER | END | disposition home or self-care (01) | LOC: C.PAPS 15:04 | PROVIDERS: ATTEND Obstetrics & Gynecology | DX: Z12.4 Encounter for screening for malignant neoplasm of cervix (principal) ==

== ENCOUNTER → 2017-08-08 | Outpatient (CLI) | payer OTHER ==
[~2017-08-08] MED LIST changes: -OXYC-57 PO; -WARF2TAB PO
== END | disposition home or self-care (01) ==
LOC: C.RDSM 10:58
PROVIDERS: ATTEND Physical Medicine & Rehabilitation Sports Medicine
DX: M17.12 Unilateral primary osteoarthritis, left knee (principal)

== ENCOUNTER → 2017-09-27 | Outpatient (CLI) | payer OTHER ==
[2017-09-27 12:11] LABS: URINE APPEARANCE CLEAR (CLEAR); URINE BILIRUBIN NEG (NEG); URINE COLOR YELLOW; URINE NITRITE NEG (NEG); URINE SPECIFIC GRAVITY 1.024 (1.000-1.030); UROBILINOGEN NEG (NEG); ZZUR CULT IF INDIC CLEAN CATCH NO
[2017-09-27 12:13] LABS: MANUAL MICROSCOPIC REQUIRED? NO; REVIEW REQ? NO
== END | disposition home or self-care (01) ==
LOC: C.LABBFT 07:31
PROVIDERS: ATTEND Internal Medicine
DX: I35.9 Nonrheumatic aortic valve disorder, unspecified (principal); E78.5 Hyperlipidemia, unspecified; E55.9 Vitamin D deficiency, unspecified

== ENCOUNTER → 2017-09-28 | Outpatient (CLI) | payer OTHER ==
[2017-09-28 12:39] LABS: BASO % 0.7 %; BASO ABS # 0.03 K/uL (0-0.2); COMPLETE YES; EOS % 1.1 %; HEMATOCRIT 47.3 % (37-47); LYMPH % 42.3 %; LYMPH ABS # 1.86 K/uL (1.2-3.4); MEAN CELL VOLUME 87.6 fL (80-100); MEAN CORPUSCULAR HEMOGLOBIN 29.4 pg (25-34); MEAN CORPUSCULAR HGB CONC 33.6 g/dl (32-36); MEAN PLATELET VOLUME 10.7 fL (7.4-10.4); MONO % 14.1 %; NEUT % 41.8 %; PLATELET COUNT 237 K/uL (130-400)
[2017-09-28 12:56] LABS: ALT/SGPT 51 U/L (12-78); BLOOD UREA NITROGEN 19 mg/dl (7-18); BUN/CREATININE RATIO 23.4 (10-20); CALCIUM 9.6 mg/dl (8.5-10.1); CARBON DIOXIDE 31 mmol/L (21-32); CHLORIDE 100 mmol/L (98-107); CREATININE 0.83 mg/dl (0.60-1.20); GLUCOSE 61 mg/dl (70-99); POTASSIUM 3.7 mmol/L (3.5-5.1); SODIUM 137 mmol/L (136-145)
[2017-09-28 13:06] LABS: LYME DISEASE AB IGG NEG (NEG); LYME DISEASE AB IGM NEG (NEG)
[2017-09-28 13:07] LABS: ALB/GLOB RATIO 1.2 (0.9-2); ALKALINE PHOSPHATASE 105 U/L (45-117); AST/SGOT 33 U/L (15-37)
== END | disposition home or self-care (01) ==
LOC: C.LABBFT 09:16
PROVIDERS: ATTEND Internal Medicine
DX: R42 Dizziness and giddiness (principal)

== ENCOUNTER → 2018-03-07 | Outpatient (CLI) | payer OTHER | END | disposition home or self-care (01) | LOC: C.RDSM 10:40 | PROVIDERS: ATTEND Physical Medicine & Rehabilitation Sports Medicine | DX: Z96.652 Presence of left artificial knee joint (principal) ==

== ENCOUNTER → 2018-05-04 | Outpatient (CLI) | payer OTHER | END | disposition home or self-care (01) | LOC: C.MAMM 13:05 | PROVIDERS: ATTEND Internal Medicine | DX: M85.861 Other specified disorders of bone density and structure, right lower leg (principal); M85.862 Other specified disorders of bone density and structure, left lower leg ==